=== PATIENT | female | born 1980 | race African-American/Black ===

== ENCOUNTER 2022-07-08 11:23 | Emergency (ER) | payer MEDICAID, SELFPAY ==
[2022-07-08 11:24] VITALS: BP 143/95; PULSE 95; RESP 16; TEMP 36.6; O2SAT 99; BMI 36.7
--- NOTE | 2022-07-08 12:46 | EDS_ITS ---
HPI History of Present Illness Chief Complaint: Dental Detail of Chief Complaint: Dental pain that started 2 days ago Informant: patient Onset/Context/Timing Onset: Days (2 days) Context: Sudden Onset Timing: Continuous Quality: Pain Location: Tooth #18 and 19 Current Severity: Mild Maximum Severity: Severe Worsened by: Cold liquids Relieved by: NSAIDs and Topicals Associated Symptoms Assocated Symptom - Dental: jaw swelling and cold sensitivity; Negative for fever, face swelling or hot sensitivity Narrative Narrative: Patient is a 31-year-old female who presents with dental pain that started 2 days ago. Pain is worse with cold liquids. She denies fever, chills night sweats. Denies history of medic fever, heart murmur, SBE or being immune suppressed. She denies allergies to pain medicine or antibiotics. She has a dental appointment for the first part of August. She denies change in voice. She denies drooling. She denies difficulty opening or closing her mouth completely she denies myalgias or arthralgias. She denies joint swelling. She denies rash. Prior similar symptoms: Yes Recent Illness/Hospitalization: No PFSH PFSH Medical History no medical history no medical history Home Medications amoxicillin 500 mg tablet 500 mg PO TID #30 tabs 07/08/22 [Rx Last Taken Unknown] hydrocodone-acetaminophen 5-325mg 5mg-325mg 1 tab PO Q6H PRN PRN Pain 3 days #10 TABLETS 07/08/22 [Rx Last Taken Unknown] naproxen 500 mg tablet 500 mg PO BID #14 tabs 07/08/22 [Rx Last Taken Unknown] Allergy/AdvReac Type Severity Reaction Status Date / Time No Known Allergies Allergy Verified 07/08/22 11:25 Social History (Updated 07/08/22 @ 12:[address] Cedrick Sherman MD) household members: none Smoking Status: Current every day smoker tobacco type: cigarettes substance use type: does not use ROS ROS ED Constitutional Constitutional ED: Denies chills, fever(s), subjective, sweats or weight loss Eyes Eyes: Denies blurry vision or change in vision ENT ENT ED: Reports other Details: Further detail HPI narrative ; Denies ear pain, rhinorrhea or sore throat Cardiovascular Cardiovascular: Denies chest pain Respiratory/Chest Respiratory/Chest: Denies cough or dyspnea Musculoskeletal Musculoskeletal: Denies arthralgias, myalgias or neck pain Integumentary Denies rash Hematologic/Lymphatic Hematologic/Lymphatic: Denies easy bleeding or easy bruising EXAM Physical Exam Const Vital Signs: 07/08/22 11:24 Temperature 97.8 F Temperature Source Temporal Pulse Rate 95 Respiratory Rate 16 Blood Pressure 143/95 H Blood Pressure Mean 111 Pulse Ox 99 Oxygen Delivery Method Room Air Positive well nourished, well developed and obese General Appearance ED: well developed and NAD Nutritional Appearance: obese HEENT Reports TM's clear HEENT Narrative: There is swelling over the mandible on the left side. There is no trismus per Negative for trauma or tenderness Face and Sinus: Negative for sinuses nontender Tympanic Membrane ED: Yes TM's clear Mouth ED: Yes oral and palatal mucosa normal, Yes lips normal, Yes tongue normal, Yes salivary gland normal, No mouth trauma and Yes oral and palatal mucosa abnormal Mouth: oral and palatal mucosa normal, lips normal, tongue normal, salivary gland normal, No mouth trauma and oral and palatal mucosa abnormal Teeth and Gingiva: abnormal tooth and associated gingiva, caries and poor dentition; Negative for gingiva abnormal or teeth discoloration Throat: posterior oropharynx normal Eyes PERRL and EOMs intact bilaterally General Eye ED: Negative for pale conjunctiva or scleral icterus Neck no lymphadenopathy, supple and no JVD Neck Narrative: Trachea is midline. There is no inspiratory expiratory stridor. Lymph Lymphatic: no lymphadenopathy noted; Negative for lymphadenopathy Chest Wall inspection of chest normal and palpation of chest normal Resp normal respiratory effort, no retractions and clear to auscultation bilaterally Cardio regular rate, regular rhythm, S1 normal heart sound, S2 normal heart sound and no murmurs Extremity normal to inspection Extremity Narrative: There is no splinter hemorrhages. There is no Janeway lesions. Neuro oriented x3, CN's II-XII intact bilaterally and moves all extremities Psych mental status grossly normal Skin no rashes or lesions noted and no wounds MDM MDM MDM Narrative Medical decision making narrative: Dental caries with dental infection and reversible pulpitis involving tooth #18 and 19. Patient was treated with amoxicillin, opioids easier and NSAIDs since she has no contraindications or allergies. Doubt SBE. Doubt Ludewig's angina. There was no prior records available for review. Discharge Plan Triage Chief Complaint: Dental ED Provider: Cedrick Sherman Dx/Rx/DC Orders Clinical Impression: Abscess, apical, Dental caries extending into dentine, Symptomatic reversible pulpitis Instructions: ED Dental Abscess Prescriptions: New hydrocodone-acetaminophen [hydrocodone-acetaminophen] 5-325 mg tablet 1 tab PO Q6H PRN PRN (Reason: Pain) 3 Days Qty: 10 0RF amoxicillin 500 mg tablet 500 mg PO TID Qty: 30 0RF naproxen 500 mg tablet 500 mg PO BID Qty: 14 0RF Primary Care Provider: [facility] Doctor,Out of Referrals: [facility] Doctor,Out of [Primary Care Provider] - Dentist,Your [STAFF PHYSICIAN] - 5-7 Days Disposition Disposition: Home, Self Care
[2022-07-08] MEDS: Naproxen 250 MG Tablet 500 MG PO (12:50)
[2022-07-08] MEDS: HYDROcodone Bitartrate/Apap 5/325 Tablet PO (12:50)
[2022-07-08] MEDS: AMOXICILLIN 500 MG CAPSULE PO (12:50)
== END 2022-07-08 13:01 | disposition home or self-care (01) ==
PROVIDERS: Emergency Provider Emergency Medicine; Visit Provider Emergency Medicine
DX: K04.7 Periapical abscess without sinus (principal); K02.9 Dental caries, unspecified; F17.210 Nicotine dependence, cigarettes, uncomplicated; K04.01 Reversible pulpitis; E66.9 Obesity, unspecified
CPT/HCPCS: 99282